=== PATIENT | female | born 1960 | race Hispanic/Latino ===

== ENCOUNTER → 2024-05-28 | Day surgery (SDC) | payer OTHER ==
[~2024-05-28] MED LIST: ASPIRIN81 MG PO; HYDROCHLOROTH12.5 MG PO; LEVEMIR SQ; LIDOCAINE HCL 2% LOCAL INJ 5 ML SDV VIAL INJ ONE; LIPITOR20 MG PO; LOSARTAN POTASS25 MG PO; METFORMIN HCL500 MG PO; METOCLOPRAMIDE HCL 10 MG/2ML VIAL ONE; METOPROLOL SUCC50 MG PO; NEURONTIN300 MG PO; NIFEDIPINE ER30 M1 PO; OMEPRAZOLE40 MG PO; OXYBUTYNIN CHLOR5 MG PO; OZEMPIC1 MG/0.71; PROPOFOL IV EMULSION 50 ML IV ONE; VITAMIN B-121000 MCG PO; VITAMIN D250 MCG PO; WELCHOL625 MG PO
[2024-05-28] MEDS: LACTATED RINGER'S 1,000 ML ONE (14:23)
[2024-05-28 14:57] VITALS: BP 140/70; PULSE 78; RESP 18; O2SAT 98
[2024-05-28 15:45] LABS: WBC,FECAL (FECAL LACTOFERRIN) NEGATIVE (NEGATIVE)
[2024-05-28 15:56] LABS: CDIFF AG QUIK CHEK NEGATIVE (NEGATIVE); CDIFF TOX QUIK CHEK NEGATIVE (NEGATIVE)
[2024-05-29 07:12] LABS: C-REACTIVE PROTEIN 10 mg/L (0-10)
[2024-05-31 14:11] LABS: ENDOMYSIAL ANTIBODIES, IGA Negative (Negative)
[2024-05-31 15:16] LABS: IMMUNOGLOBULIN A 522 mg/dL (87-352); TISSUE TRANSGLUTAMINASE IGA AB <2 U/mL (0-3)
== END | disposition home or self-care (01) ==
LOC: OR 12:17
PROVIDERS: ATTEND Internal Medicine Gastroenterology
DX: K29.50 Unspecified chronic gastritis without bleeding (principal); Z85.038 Personal history of other malignant neoplasm of large intestine; K63.5 Polyp of colon; K52.9 Noninfective gastroenteritis and colitis, unspecified; K21.9 Gastro-esophageal reflux disease without esophagitis; K20.90 Esophagitis, unspecified without bleeding; K22.89 Other specified disease of esophagus; K44.9 Diaphragmatic hernia without obstruction or gangrene; K31.89 Other diseases of stomach and duodenum; K62.89 Other specified diseases of anus and rectum; K64.8 Other hemorrhoids; Z71.3 Dietary counseling and surveillance; G47.33 Obstructive sleep apnea (adult) (pediatric); E11.9 Type 2 diabetes mellitus without complications; I10 Essential (primary) hypertension; I49.1 Atrial premature depolarization; E78.5 Hyperlipidemia, unspecified; E66.01 Morbid (severe) obesity due to excess calories; Z01.810 Encounter for preprocedural cardiovascular examination; Z79.82 Long term (current) use of aspirin; Z79.85 Long-term (current) use of injectable non-insulin antidiabetic drugs; Z79.84 Long term (current) use of oral hypoglycemic drugs; Z79.4 Long term (current) use of insulin; Z79.899 Other long term (current) drug therapy; Z68.41 Body mass index [BMI] 40.0-44.9, adult; Z86.73 Personal history of transient ischemic attack (TIA), and cerebral infarction without residual deficits; Z80.0 Family history of malignant neoplasm of digestive organs
CPT/HCPCS: 43239; 45380; 45385; 82784; 83516; 83630; 83993; 86140; 86256; 87045; 87177; 87324; 87328; 87449; 93005; J2003; J2470; J2704; J2765; J7121